=== PATIENT | female | born 1980 | race Caucasian/White ===

== ENCOUNTER → 2016-06-08 | Outpatient (CLI) | payer BC, OTHER | LOC: ULTRA 09:47 | DX: R10.2 Pelvic and perineal pain (principal) ==

== ENCOUNTER → 2017-08-08 | Outpatient (CLI) | payer OTHER | LOC: ULTRA 14:18 | DX: R10.2 Pelvic and perineal pain (principal); N83.291 Other ovarian cyst, right side ==

== ENCOUNTER → 2019-12-27 | Outpatient (CLI) | payer OTHER | LOC: SJCVCIMAG 16:21 | PROVIDERS: ATTEND Internal Medicine Cardiovascular Disease | DX: I08.8 Other rheumatic multiple valve diseases (principal) ==

== ENCOUNTER → 2020-01-02 | Outpatient (CLI) | payer OTHER | LOC: CAT | PROVIDERS: ATTEND Family Medicine | DX: Z13.6 Encounter for screening for cardiovascular disorders (principal); I25.10 Atherosclerotic heart disease of native coronary artery without angina pectoris; E78.00 Pure hypercholesterolemia, unspecified ==

== ENCOUNTER → 2020-01-24 | Outpatient (CLI) | payer OTHER | LOC: RAD 09:48 | PROVIDERS: ATTEND Pediatrics | DX: R06.02 Shortness of breath (principal) ==

== ENCOUNTER → 2020-01-29 | Outpatient (CLI) | payer OTHER | LOC: RAD 13:52 → ULTRA 13:52 | PROVIDERS: ATTEND Pediatrics | DX: N83.202 Unspecified ovarian cyst, left side (principal); N83.201 Unspecified ovarian cyst, right side; R06.02 Shortness of breath; R14.0 Abdominal distension (gaseous); R10.9 Unspecified abdominal pain; R10.2 Pelvic and perineal pain ==

== ENCOUNTER → 2020-03-05 | Outpatient (CLI) | payer OTHER | LOC: RAD 08:46 | PROVIDERS: ATTEND Pediatrics | DX: R05 Cough (principal); R06.02 Shortness of breath ==

== ENCOUNTER → 2020-03-05 | Outpatient (CLI) | payer OTHER | LOC: LAB 10:55 | PROVIDERS: ATTEND Pediatrics | DX: Z20.822 Contact with and (suspected) exposure to COVID-19 (principal) ==